=== PATIENT | male | born 2000 | race Caucasian/White ===

== ENCOUNTER 2024-01-09 | Emergency (ER) | payer OTHER ==
[~2024-01-09] VITALS: Ht 180.3 cm; Wt 111.4 kg
[2024-01-09] MEDS: IBUPROFEN 600 MG TABLET PO ONE (00:39)
[2024-01-09] MEDS: ACETAMINOPHEN 500 MG TABLET PO ONE (00:39)
[2024-01-09] MEDS ORDERED: ACET-3385 PO (01:33)
[2024-01-09] MEDS ORDERED: IBUP-1492 PO (01:33)
[2024-01-09 01:50] VITALS: BP 127/70; PULSE 69; RESP 16; TEMP 97.3
== END 2024-01-09 03:32 | disposition home or self-care (01) ==
LOC: EMS 00:03
DX: S63.064A Dislocation of metacarpal (bone), proximal end of right hand, initial encounter (principal); F12.90 Cannabis use, unspecified, uncomplicated; X58.XXXA Exposure to other specified factors, initial encounter; Y93.89 Activity, other specified; Y92.89 Other specified places as the place of occurrence of the external cause; Y99.8 Other external cause status
CPT/HCPCS: 26670; 99284; 73110-TC; 73130-TC; 73562-TC; Z7502; Z7610